=== PATIENT | male | born 1990 | race Two or more races ===

== ENCOUNTER 2021-11-13 00:20 | Emergency (ER) | payer BC ==
[~2021-11-13] VITALS: Ht 170.2 cm; Wt 71.0 kg
[2021-11-13] MEDS ORDERED: IV NORMAL SALINE 1000ML BAG 1,000 ML IV ONE (01:15)
[2021-11-13] MEDS ORDERED: LIDO:MAALOX 1:1 20 ML SINGLE DOSE. SWSW ONE (01:15)
[2021-11-13] MEDS ORDERED: FAMOTIDINE 20 MG/2 ML VIAL IVP ONE (01:15)
[2021-11-13] MEDS ORDERED: FAMOTIDINE 20 MG/2 ML VIAL ONE (01:19)
[2021-11-13] MEDS ORDERED: LIDO:MAALOX 1:1 20 ML SINGLE DOSE. ONE (01:19)
--- NOTE | 2021-11-13 01:26 | PHYS DOC ---
Past Medical History Past Surgical History: No Surgical History General Adult EDM: Chief Complaint: ABDOMINAL PAIN HPI: HPI: Patient is a 31 year old male who present to ER because his stomach is on fire tonight. Patient denies any nausea vomiting. Patient said he has been having some upper respiratory congestion, he took a Mucinex today. Afterward he started feeling burning sensation inside his stomach. Patient denies any nausea vomiting. Patient denies any medical problem. Patient denies any cough or fever, no chest pain Review of Systems: Review of Systems: Constitutional: Denies fever or chills. [] Eyes: Denies change in visual acuity. [] HENT: Denies nasal congestion or sore throat. [] Respiratory: Denies cough or shortness of breath. [] Cardiovascular: Denies chest pain or edema. [] GI: Denies abdominal pain, nausea, vomiting, bloody stools or diarrhea. Positive for burning sensation inside his stomach : Denies dysuria. [] Musculoskeletal: Denies back pain or joint pain. [] Integument: Denies rash. [] Neurologic: Denies headache, focal weakness or sensory changes. [] Endocrine: Denies polyuria or polydipsia. [] Lymphatic: Denies swollen glands. [] Psychiatric: Denies depression or anxiety. [] Heart Score: C/O Chest Pain: N/A Risk Factors: Risk Factors: DM, Current or recent (<one month) smoker, HTN, HLP, family history of CAD, obesity. Risk Scores: Score 0 - 3: 2.5% MACE over next 6 weeks - Discharge Home Score 4 - 6: 20.3% MACE over next 6 weeks - Admit for Clinical Observation Score 7 - 10: 72.7% MACE over next 6 weeks - Early Invasive Strategies Current Medications: Current Medications Medications (Trade) Dose Ordered Sig/[place] Start Time Stop Time Status Last Admin Dose Admin Famotidine (Pepcid Vial) 20 mg 1X ONCE 11/13/21 01:15 11/13/21 01:16 UNV Multi-Ingredient Mouthwash/Gargle (Gi Cocktail) 20 ml 1X ONCE 11/13/21 01:15 11/13/21 01:16 UNV Sodium Chloride 1,000 ml @ 1,000 mls/hr 1X ONCE 11/13/21 01:15 11/13/21 02:14 UNV Physical Exam: PE: Constitutional: Well developed, well nourished, no acute distress, non-toxic appearance. [] HENT: Normocephalic, atraumatic, bilateral external ears normal, oropharynx moist, no oral exudates, nose normal. [] Eyes: PERRLA, EOMI, conjunctiva normal, no discharge. [] Neck: Normal range of motion, no tenderness, supple, no stridor. [] Cardiovascular:Heart rate regular rhythm, no murmur [] Lungs & Thorax: Bilateral breath sounds clear to auscultation [] Abdomen: Bowel sounds normal, soft, no tenderness, no masses, no pulsatile masses. [] Skin: Warm, dry, no erythema, no rash. [] Back: No tenderness, no CVA tenderness. [] Extremities: No tenderness, no cyanosis, no clubbing, ROM intact, no edema. [] Neurologic: Alert and oriented X 3, normal motor function, normal sensory function, no focal deficits noted. [] Psychologic: Affect normal, judgement normal, mood normal. [] Current Patient Data: Labs: Laboratory Tests Test 11/13/21 01:31 White Blood Count 6.2 x10^3/uL Red Blood Count 4.72 x10^6/uL Hemoglobin 14.5 g/dL Hematocrit 42.2 % Mean Corpuscular Volume 89 fL Mean Corpuscular Hemoglobin 31 pg Mean Corpuscular Hemoglobin Concent 35 g/dL Red Cell Distribution Width 13.0 % Platelet Count 191 x10^3/uL Neutrophils (%) (Auto) 54 % Lymphocytes (%) (Auto) 29 % Monocytes (%) (Auto) 12 % Eosinophils (%) (Auto) 4 % Basophils (%) (Auto) 1 % Neutrophils # (Auto) 3.3 x10^3/uL Lymphocytes # (Auto) 1.8 x10^3/uL Monocytes # (Auto) 0.8 x10^3/uL Eosinophils # (Auto) 0.3 x10^3/uL Basophils # (Auto) 0.0 x10^3/uL Sodium Level 142 mmol/L Potassium Level 4.0 mmol/L Chloride Level 104 mmol/L Carbon Dioxide Level 28 mmol/L Anion Gap 10 Blood Urea Nitrogen 13 mg/dL Creatinine 1.0 mg/dL Estimated GFR (Cockcroft-Gault) 86.1 BUN/Creatinine Ratio 13 Glucose Level 119 mg/dL Calcium Level 9.1 mg/dL Magnesium Level 2.2 mg/dL Total Bilirubin 0.4 mg/dL Aspartate Amino Transf (AST/SGOT) 28 U/L Alanine Aminotransferase (ALT/SGPT) 51 U/L Alkaline Phosphatase 58 U/L Total Protein 8.0 g/dL Albumin 3.6 g/dL Albumin/Globulin Ratio 0.8 Lipase 77 U/L Current Medications Medications (Trade) Dose Ordered Sig/[place] Route PRN Reason Start Time Stop Time Status Last Admin Dose Admin Multi-Ingredient Mouthwash/Gargle (Gi Cocktail) 20 ml 1X ONCE SWSW 11/13/21 01:15 11/13/21 01:34 DC 11/13/21 01:33 Famotidine (Pepcid Vial) 20 mg 1X ONCE IVP 11/13/21 01:15 11/13/21 01:34 DC 11/13/21 01:33 Sodium Chloride 1,000 ml @ 1,000 mls/hr 1X ONCE IV 11/13/21 01:15 11/13/21 02:14 DC 11/13/21 01:33 Vital Signs: Vital Signs Date Time Temp Pulse Resp B/P (MAP) Pulse Ox O2 Delivery O2 Flow Rate FiO2 11/13/21 01:05 98.0 79 18 134/74 (94) 98 Room Air 98.0 EKG: EKG: [] Radiology/Procedures: Radiology/Procedures: [] Course & Med Decision Making: Course & Med Decision Making Pertinent Labs and Imaging studies reviewed. (See chart for details) Patient was given medication in ER includes GI cocktail, he felt much better. His lab work was reassuring, patient will be discharged home, I suspect patient has acid reflux problem. Patient will be discharged home with a prescription for Prilosec. He will need to follow-up with a GI doctor in the future if he had pain again Hany Disclaimer: Hany Disclaimer: This electronic medical record was generated, in whole or in part, using a voice recognition dictation system. Departure Departure Impression: Primary Impression: GERD (gastroesophageal reflux disease) Disposition: HOME / SELF CARE / HOMELESS Condition: IMPROVED Patient Instructions: Gastroesophageal Reflux Disease, Adult Additional Instructions: Thank you for visiting our Emergency Department. We appreciate you trusting us with your care. If any additional problems come up don't hesitate to return to visit us. Please follow up with your primary care provider so they can plan additional care if needed and know about the problem that you had. If symptoms worsen come back to the Emergency Department. Any concerning symptoms that start such as chest pain, shortness of air, weakness or numbness on one side of the body, running high fevers or any other concerning symptoms return to the ER. Scripts Omeprazole Magnesium (PRILOSEC OTC) 20 Mg Tablet. 20 MG PO DAILY for 30 Days, #30 TAB Prov: PITER AL DO 11/13/21 PITER AL DO November 13, 2021 01:26
[2021-11-13 01:42] LABS: BASO % 1 % (0-3); EOS # 0.3 x10^3/uL (0.0-0.7); EOS % 4 % (0-3); HEMATOCRIT 42.2 % (39.0-53.0); HEMOGLOBIN 14.5 g/dL (13.0-17.5); LYMPH # 1.8 x10^3/uL (1.0-4.8); LYMPH % 29 % (24-48); MEAN CORPUSCULAR HEMOGLOBIN 31 pg (25-35); MEAN CORPUSCULAR HGB CONC 35 g/dL (31-37); MEAN CORPUSCULAR VOLUME 89 fL (79-100); MONO # 0.8 x10^3/uL (0.0-1.1); MONO % 12 % (0-9); NEUT # 3.3 x10^3/uL (1.8-7.7); NEUT % 54 % (31-73); PLATELET COUNT 191 x10^3/uL (140-400); RED BLOOD COUNT 4.72 x10^6/uL (4.30-5.70); WHITE BLOOD COUNT 6.2 x10^3/uL (4.0-11.0)
[2021-11-13 01:53] LABS: CALCIUM 9.1 mg/dL (8.5-10.1); GFR 86.1
[2021-11-13 01:59] LABS: ALBUMIN 3.6 g/dL (3.4-5.0); ALBUMIN/GLOBULIN RATIO 0.8 (1.0-1.7); MAGNESIUM 2.2 mg/dL (1.8-2.4); TOTAL BILIRUBIN 0.4 mg/dL (0.2-1.0)
[2021-11-13] MEDS ORDERED: OMEP20TA63 PO (02:44)
[2021-11-13 02:45] VITALS: BP 134/66
== END 2021-11-13 02:59 | disposition home or self-care (01) ==
LOC: ER 00:20
DX: K21.9 Gastro-esophageal reflux disease without esophagitis (principal)
CPT/HCPCS: 36415; 80053; 83690; 83735; 85025; 96361; 96374; 99283; J3490; J7030